=== PATIENT | male | born 2000 | race Hispanic/Latino ===

== ENCOUNTER 2023-03-13 13:22 | Emergency (ER) | payer MEDICAID ==
[~2023-03-13] VITALS: Ht 180.3 cm; Wt 94.3 kg
[2023-03-13 14:17] LABS: COVID19 (SARS ANTIGEN RAPID) PRESUMPTIVE NEGATIVE (NEGATIVE); INFLUENZA TYPE A Negative For Type A (NEGATIVE); INFLUENZA TYPE B Negative For Type B (NEGATIVE)
[2023-03-13] MEDS ORDERED: BENZ-39 PO (14:55)
[2023-03-13 15:02] VITALS: BP 130/80; PULSE 80; RESP 12; O2SAT 100
== END 2023-03-13 15:05 | disposition home or self-care (01) ==
LOC: EDH 13:22
DX: J06.9 Acute upper respiratory infection, unspecified (principal); Z20.822 Contact with and (suspected) exposure to COVID-19
CPT/HCPCS: 87426; 87804; 87880